=== PATIENT | male | born 2005 | race Caucasian/White ===

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

== ENCOUNTER 2024-07-12 15:19 | Outpatient (CLI) | payer OTHER, SELFPAY ==
[2024-07-12 23:09] LABS: Chlamydia DNA Amplified* NOT DETECTED (No Detected); GC DNA Amplified* NOT DETECTED (No Detected)
== END 2024-07-12 15:20 | disposition home or self-care (01) ==
LOC: NFLDUCREF 15:19
PROVIDERS: Visit Provider Nurse Practitioner Family
DX: Z11.3 Encounter for screening for infections with a predominantly sexual mode of transmission (principal); R31.9 Hematuria, unspecified
CPT/HCPCS: 87491; 87591